=== PATIENT | male | born 1935 | race Caucasian/White ===

== ENCOUNTER 2024-12-29 10:02 | Outpatient (CLI) | payer OTHER, SELFPAY | END 2024-12-29 10:03 | disposition home or self-care (01) | LOC: WOUND 10:05 | PROVIDERS: Visit Provider Nurse Practitioner Family | DX: I70.293 Other atherosclerosis of native arteries of extremities, bilateral legs (principal); E11.622 Type 2 diabetes mellitus with other skin ulcer; L97.811 Non-pressure chronic ulcer of other part of right lower leg limited to breakdown of skin; R60.0 Localized edema; R94.39 Abnormal result of other cardiovascular function study; Z79.84 Long term (current) use of oral hypoglycemic drugs | CPT/HCPCS: G0463 ==

== ENCOUNTER 2025-01-04 09:10 | Outpatient (CLI) | payer OTHER, SELFPAY | END 2025-01-04 09:11 | disposition home or self-care (01) | LOC: WOUND 09:11 | PROVIDERS: Visit Provider Nurse Practitioner Family | DX: I70.293 Other atherosclerosis of native arteries of extremities, bilateral legs (principal); E11.65 Type 2 diabetes mellitus with hyperglycemia; R60.0 Localized edema; R94.39 Abnormal result of other cardiovascular function study; Z79.84 Long term (current) use of oral hypoglycemic drugs | CPT/HCPCS: G0463 ==